=== PATIENT | male | born 1955 | race Caucasian/White ===

== ENCOUNTER 2022-11-14 22:25 | Emergency (ER) | payer OTHER, MEDICARE, SELFPAY ==
--- NOTE | ~2022-11-14 | XR_ITS ---
Portable chest x-ray Comparison: None Clinical History: Status post fall Findings: Lungs are clear, without focal consolidation or pleural effusion. Cardiomediastinal silho uette is unremarkable. Bones and soft tissues are unremarkable. Impression: Clear lungs. Reviewed, dictated and finalized at location M. VITY MANAGER Impression: Clear lungs.
--- NOTE | ~2022-11-14 | XR_ITS ---
AP view of the pelvis and AP and lateral views of the right hip Clinical history: Pain Findings: No acute fracture or dislocation is seen. Osseous alignment is anatomic. There is minimal b ilateral hip joint degenerative change. Bilateral SI joints are intact. Soft tissues are unremarkable . Impression: Minimal bilateral hip joint degenerative change. No fracture or dislocation. Reviewed, dictated and finalized at location . 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 No fracture or dislocation.
--- NOTE | ~2022-11-14 | CT_ITS ---
EXAMINATION: CT brain wo con INDICATION: Head injury COMPARISON: None TECHNIQUE: Standard unenhanced head CT. The dose-length product (DLP) was 681.00 mGy-cm. The mA was a djusted according to patient size. Iterative reconstruction technique was employed. FINDINGS: There is an 8 mm intraparenchymal hemorrhage in the right frontoparietal region. There is a 5 mm intraparenchymal hemorrhage of the right frontal lobe. There is a large right frontoparietal sc alp hematoma. No evidence of mass lesion. No evidence of acute infarction. There is moderate perivent ricular and subcortical hypodensity probably related to small vessel ischemic disease. There is moder ate prominence of the sulci and ventricles related to cerebral atrophy. Intracranial calcified cerebr al atherosclerosis is noted. There are no extra-axial collections. There is no mass effect or midline shift. The orbits are unremarkable. The visualized sinuses and mastoid air cells are well aerated. IMPRESSION: 1. Acute intraparenchymal hemorrhages of the right frontoparietal region and right frontal lobe. Thes e findings were discussed with Xochilt Herbert PA-C in the Emergency Department at 2305 hours on 11/14/2022. 2. Age related findings. Reviewed, dictated and finalized at location F. TRAINER IMPRESSION: 1. Acute intraparenchymal hemorrhages of the right frontoparietal region and ri ght frontal lobe. These findings were discussed with ROLDAN Plaza in the Emergency Department at 2305 hours on 11/14/2022. 2. Age related findings.
--- NOTE | ~2022-11-14 | CT_ITS ---
EXAMINATION: CT cervical spine wo con DATE: 11/14/2022 23:00 INDICATION: Head injury TECHNIQUE: Computed tomography (CT) of the cervical spine was performed without intravenous contrast. The dose-length product (DLP) was 614.56 mGy-cm. Automated exposure control and iterative reconstruc tion technique were employed. COMPARISON: None FINDINGS: There is reversal of the normal cervical lordosis. No fractures identified. The vertebral b mony heights are maintained. There is severe loss of intervertebral disc space height at C3-4, C4-5, C 5-6, and C6-7. Alignment is normal. The odontoid process is intact. Degenerative osteophytes project from the anterior endplates of multiple vertebral bodies. There is moderate multilevel facet and unco vertebral joint osteoarthritis. IMPRESSION: 1. Moderate cervical spondylosis without acute findings. Reviewed, dictated and finalized at location F. 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
[2022-11-14 22:30] VITALS: BP 177/94; PULSE 70; RESP 18; TEMP 36.6; O2SAT 99
--- NOTE | 2022-11-14 22:43 | ED.FALL ---
HPI - Fall General Chief Complaint: Fall <APURVA Plaza Last Filed: 11/15/22 02:08> Stated Complaint: fall. +LOC <Xochilt Herbert PA-C - Last Filed: 11/15/22 02:08> Time Seen by Provider: 11/14/22 22:35 <APURVA Plaza Last Filed: 11/15/22 02:08> History of Present Illness HPI Narrative: Patient is a 67-year-old male here for evaluation of fall with head injury earlier today. Patient states that he was working at [employer] when he slipped on some oil or a spot on the floor that was wet. He does not remember hitting his head and did lose consciousness for an unknown amount of time. He woke up prior to the ambulance being called. He does not take blood thinner medicines. He was in his usual state of health today and denies any preceding chest pain, shortness of breath, weakness, dizziness or visual changes. Currently complaining of a posterior headache but no other complaints. His tetanus is up-to-date as of 2 weeks ago. <APURVA Plaza Last Filed: 11/15/22 02:08> Related Data Allergies/Adverse Reactions: Allergies Allergy/AdvReac Type Severity Reaction Status Date / Time No Known Allergies Allergy Unknown Verified 02/18/15 09:41 <APURVA Plaza Last Filed: 11/15/22 02:08> Review of Systems Review of Systems: Gen.: Denies fevers or chills Eyes: Denies eye pain or visual change ENT: Denies congestion Respiratory: Denies shortness of breath or cough CV: Denies chest pain or palpitations GI: Denies abdominal pain nausea, emesis or diarrhea denies burning, urgency, frequency or hematuria Musculoskeletal: Denies back pain or muscle pain Neuro: Reports posterior headache. Denies numbness, tingling, weakness or focal weakness Skin: Reports laceration. Except as documented, all other systems reviewed and negative <APURVA Plaza Last Filed: 11/15/22 02:08> Exam Narrative: APPEARANCE: Well appearing, no pain in distress, well-nourished. Head: Patient has a 0.5 cm irregular laceration to his right temporal region with active bleeding. He has a 2 and half centimeter irregular laceration overlying a large hematoma to his posterior scalp with active bleeding. EYES: PERRLA/EOMI, conjunctivae clear NOSE: No nasal drainage EARS: External ear normal in appearance THROAT: Oropharynx is clear. Mucous membranes are moist. NECK: Supple. No adenopathy, no masses. RESPIRATORY: Airway patent, respirations nonlabored. Clear to auscultation bilaterally, no rales, rhonchi, wheezing. CARDIOVASCULAR: Regular rate and rhythm without murmurs, rubs, or gallops. ABDOMINAL: Normoactive bowel sounds. Soft, nontender, nondistended. No rebound tenderness or guarding. MUSCULOSKELETAL: Extremities are warm and well-perfused. Moves all extremities well. No edema. NEURO: Normal speech. No focal neurologic deficits. SKIN: lacerations as documented above PSYCHIATRIC: Normal affect/mood. <Xochilt Herbert PA-C - Last Filed: 11/15/22 02:08> Course CABLE FORMER/PA Physician Supervision Patient's visit was performed by both the physician and PA. I did evaluate the patient the patient is currently awake and alert x4 with no focal neurologic deficits. Discussed with him the results of the work-up. I performed all aspects of the MDM on this patient and discussed the need for transfer with the patient reviewed the CT scan showing acute bleeds and will transfer to [place] for acute trauma evaluation patient is on no blood thinners at this time <Óscar Gomez DO - Last Filed: 11/15/22 02:58> Vital Signs Vital signs: Vital Signs Temperature 98 F 11/14/22 22:30 Pulse Rate 70 11/14/22 22:30 Respiratory Rate 18 11/14/22 22:30 Blood Pressure 177/94 H 11/14/22 22:30 Pulse Oximetry 99 11/14/22 22:30 Oxygen Delivery Room Air 11/14/22 22:30 Temperature 98 F 11/14/22 22:30 Pulse Rate 82 11/15/22 00:08 Respiratory Rate 18
[2022-11-14 23:30] VITALS: PULSE 92; RESP 18; O2SAT 99
[2022-11-14 23:32] VITALS: BP 188/84; PULSE 92; RESP 18; O2SAT 99
--- NOTE | 2022-11-14 23:56 | PC.NURSE ---
[facility] accepted als transfer to [facility] eta 35min
[2022-11-15 00:08] VITALS: BP 169/80; PULSE 82
[2022-11-15] MEDS: niCARdipine 20 MG/200 ML 20 MG/200 ML BAG 50 MG IV CONT (00:08)
[2022-11-15] MEDS: levETIRAcetam 1000MG/NACL100ML 1,000 MG/100 ML BAG 400 MG IVPB (00:08)
[2022-11-15] MEDS: LIDOCAINE, EPINEPHRINE, TETRACAINE VISCOUS SOLN 3 ML TOPICAL (00:09)
== END 2022-11-15 00:55 | disposition short-term general hospital (02) ==
PROVIDERS: Emergency Provider Emergency Medicine
DX: S06.2X9A Diffuse traumatic brain injury with loss of consciousness of unspecified duration, initial encounter (principal); S01.81XA Laceration without foreign body of other part of head, initial encounter; S01.01XA Laceration without foreign body of scalp, initial encounter; W01.0XXA Fall on same level from slipping, tripping and stumbling without subsequent striking against object, initial encounter
CPT/HCPCS: 12002; 12011; 70450; 71045; 72125; 73502; 96365; 96367; 99291; J0131; J1953